=== PATIENT | female | born 1995 | race Caucasian/White ===

== ENCOUNTER 2017-09-10 12:45 | Emergency (ER) | payer BC ==
[2017-09-10 13:13] VITALS: BP 104/74
[2017-09-10] MEDS ORDERED: ACETAMINOPHEN 500 MG TABLET PO ONE (13:30)
[2017-09-10] MEDS ORDERED: NAPROXEN 250 MG TABLET PO ONE (13:30)
[2017-09-10] MEDS ORDERED: CYCLOBENZAPRINE HCL 5 MG TABLET PO ONE (13:30)
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
== END 2017-09-10 13:47 | disposition home or self-care (01) ==
LOC: ED 12:45
DX: S50.11XA Contusion of right forearm, initial encounter (principal); W20.8XXA Other cause of strike by thrown, projected or falling object, initial encounter; Y92.9 Unspecified place or not applicable
CPT/HCPCS: 73090; L3908

== ENCOUNTER 2017-09-13 19:40 | Emergency (ER) | payer BC ==
[2017-09-13] MEDS ORDERED: HYDROcodone /APAP 5/325 1 EACH TABLET PO ONE (21:13)
--- NOTE | 2017-09-13 21:13 | ED Physician Documentation ---
Hand Injury - HISTORIAN Historian: patient - HPI Stated Complaint: PAIN IN R ARM Chief Complaint: Hand Injury Additional Information: x-ray at [facility] tday reveals scaphoid fx Onset: just prior to arrival Where: home Severity: moderate Duration: constant Context: fall Location of Injury: R hand Modifying Factors: other (throbbing) Further Comments: no - ROS CONST: no problems GI/: denies: problems urinating, nausea, vomiting NEURO: none CVS/RESP: none LNMP: denies: , post-menopausal EYES/ENT: none MS/SKIN/LYMPH: other (hand pain as above) - PAST HX Past History: none Immunizations: UTD Allergies/Adverse Reactions: Allergies Allergy/AdvReac Type Severity Reaction Status Date / Time No Known Allergies Allergy Verified 09/13/17 19:55 Home Medications: Ambulatory Orders Medication Instructions Recorded Naproxen [Naprosyn] 500 mg PO Q12 #10 tablet 09/10/17 Tramadol HCl [Ultram] 50 mg PO Q4H PRN #20 tablet 09/10/17 - SOCIAL HX Smoking History: cigarettes Alcohol Use: occasionally Drug Use: none - FAMILY HX Family History: no significant history - VITAL SIGNS Vital Signs: Vital Signs Temp Pulse Resp BP Pulse Ox 111 H 18 146/89 99 09/13/17 19:43 09/13/17 19:43 09/13/17 19:43 09/13/17 19:43 - REVIEWED ASSESSMENTS Nursing Assessment Reviewed: Yes Vitals Reviewed: Yes Progress - Results/Orders Results/Orders: no testing ordered - Progress Progress: pt. given 1 vicodin 5/325 p.o. in er Critical Care Note - Critical Care Note Total Time (mins): 0 ED Results Lab/Radiology - Lab Results Lab Results: none ordered - Radiology Radiology Impressions: none ordered Hand Injury Physical Exam - Exam General Appearance: alert, moderate distress Hand: other (splinted in thumb spica splint, skin warm, pink, sensation intact) Neuro: sensation nml Vascular: no vascular compromise Tendons: other (forearm/hand in spica splint) Forearm/Elbow/Arm: uninjured above wrist Skin: warm/dry, normal color Head/ENT: nml inspection Neck/Back: nml inspection Resp/CVS: chest non-tender, breath sounds nml, heart sounds nml Abdomen: non-tender, no organomegaly, nml bowel sounds Discharge Clincal Impression: Scaphoid fracture Qualifiers: Encounter type: subsequent encounter Scaphoid bone location: unspecified portion of scaphoid Fracture type: closed Fracture alignment: nondisplaced Laterality: right Fracture healing: with routine healing Qualified Code(s): S62.001D - Unspecified fracture of navicular [scaphoid] bone of right wrist, subsequent encounter for fracture with routine healing Referrals: Primary Doctor,No [Primary Care Provider] - 2 Days Comments: Discharged in stable condition with script for vicodin 5/325 1 pill 4x/day as needed for pain. Condition: Stable Disposition: 01 HOME, SELF-CARE Decision to Admit: NO Decision Time: 21:12
[2017-09-13 21:25] VITALS: BP 136/84
== END 2017-09-13 21:24 | disposition home or self-care (01) ==
LOC: ED 19:40
DX: S62.001D Unspecified fracture of navicular [scaphoid] bone of right wrist, subsequent encounter for fracture with routine healing (principal); W19.XXXA Unspecified fall, initial encounter
CPT/HCPCS: 99283; A9270-GY